=== PATIENT | male | born 2000 | race African-American/Black ===

== ENCOUNTER 2018-01-02 15:57 | Emergency (ER) | payer SELFPAY ==
[~2018-01-02] VITALS: Ht 180.3 cm; Wt 59.0 kg
[2018-01-02] MEDS ORDERED: ACETAMINOPHEN 325 MG TAB PO ONE (16:30)
[2018-01-02] MEDS ORDERED: IBUPROFEN 200 MG TAB PO ONE (16:30)
== END 2018-01-02 18:33 | disposition home or self-care (01) ==
LOC: FSED 15:57
DX: M79.641 Pain in right hand (principal); S62.336A Displaced fracture of neck of fifth metacarpal bone, right hand, initial encounter for closed fracture; W22.09XA Striking against other stationary object, initial encounter; Y92.008 Other place in unspecified non-institutional (private) residence as the place of occurrence of the external cause
CPT/HCPCS: 99283